=== PATIENT | male | born 1955 | race Caucasian/White ===

== ENCOUNTER 2023-09-10 17:30 | Outpatient (RCR) | payer SELFPAY | END 2023-09-10 23:59 | LOC: NS 17:30 | DX: Z71.3 Dietary counseling and surveillance (principal) ==

== ENCOUNTER 2023-09-15 12:07 | Outpatient (RCR) | payer SELFPAY | END 2023-10-11 23:59 | LOC: NS 12:07 | DX: Z71.3 Dietary counseling and surveillance (principal) ==

== ENCOUNTER 2023-12-15 15:54 | Outpatient (RCR) | payer SELFPAY | END 2024-01-10 23:59 | LOC: NS 15:54 | PROVIDERS: PCP Family Medicine | DX: Z71.3 Dietary counseling and surveillance (principal) ==

== ENCOUNTER 2023-12-19 13:16 | Day surgery (SDC) | payer MEDICARE, SELFPAY ==
[2023-12-19] VITALS (8 sets, daily range): BP systolic 97–118; BP diastolic 48–75; PULSE 57–67; RESP 16–18; TEMP 36.2–36.8; O2SAT 95–97; BMI 25.5
[2023-12-19 14:32] LABS: Bedside Glucose 100 mg/dL (74-106)
== END 2023-12-19 16:02 | disposition home or self-care (01) ==
LOC: EN 13:26 → AC 13:27
PROVIDERS: PCP Nurse Practitioner Family; Referring Provider Nurse Practitioner Family; Visit Provider Internal Medicine Gastroenterology
PROC: 0DJD8ZZ Inspection of Lower Intestinal Tract, Via Natural or Artificial Opening Endoscopic (ICD-10-PCS; CPT 45378; principal; 2023-12-19 14:10)
DX: D12.3 Benign neoplasm of transverse colon (principal); E11.9 Type 2 diabetes mellitus without complications; K63.5 Polyp of colon; K52.9 Noninfective gastroenteritis and colitis, unspecified; K57.30 Diverticulosis of large intestine without perforation or abscess without bleeding; I10 Essential (primary) hypertension; E78.00 Pure hypercholesterolemia, unspecified; G47.30 Sleep apnea, unspecified; Z90.49 Acquired absence of other specified parts of digestive tract; Z79.84 Long term (current) use of oral hypoglycemic drugs; Z79.82 Long term (current) use of aspirin; Z79.899 Other long term (current) drug therapy
CPT/HCPCS: 45380; 82962; 88305; A4216; J2405

== ENCOUNTER → 2024-03-04 | Outpatient (CLI) | payer SELFPAY ==
[2024-03-08 12:07] LABS: Endomysial Antibody IgA Negative (Negative); Immunoglobulin A 253 mg/dL (61-437); t-Transglutaminase IgA <2 U/mL (0-3)
[2024-03-10 09:08] LABS: Beef <0.10 kU/L (Class 0); Chocolate <0.10 kU/L (Class 0); Codfish <0.10 kU/L (Class 0); Corn <0.10 kU/L (Class 0); Egg, Whole <0.10 kU/L (Class 0); Milk (Cow) <0.10 kU/L (Class 0); Mussels <0.10 kU/L (Class 0); Peanut <0.10 kU/L (Class 0); Pork <0.10 kU/L (Class 0); Salmon <0.10 kU/L (Class 0); Shrimp <0.10 kU/L (Class 0); Soybean <0.10 kU/L (Class 0); Tuna <0.10 kU/L (Class 0); Wheat <0.10 kU/L (Class 0)
== END | disposition home or self-care (01) ==
PROVIDERS: PCP Nurse Practitioner Family; Referring Provider Student in an Organized Health Care Education/Training Program; Visit Provider Student in an Organized Health Care Education/Training Program
DX: R19.7 Diarrhea, unspecified (principal)
CPT/HCPCS: 36415; 82784; 83516; 86003; 86005; 86255

== ENCOUNTER → 2024-03-23 | Outpatient (CLI) | payer SELFPAY ==
[2024-03-23 21:47] LABS: Microalbumin,Random Urine 7.3 mg/L (NO RANGE EST.); Microalbumin:Creatinine Ratio 5.7 mg/g CRE (<30 mg/g CRE)
== END | disposition home or self-care (01) ==
PROVIDERS: PCP Nurse Practitioner Family; Referring Provider Internal Medicine Endocrinology, Diabetes & Metabolism; Visit Provider Internal Medicine Endocrinology, Diabetes & Metabolism
DX: E11.9 Type 2 diabetes mellitus without complications (principal); E78.2 Mixed hyperlipidemia; E04.9 Nontoxic goiter, unspecified; E55.9 Vitamin D deficiency, unspecified
CPT/HCPCS: 82043; 82570

== ENCOUNTER → 2024-09-29 | Outpatient (CLI) | payer SELFPAY ==
[2024-09-29 15:53] LABS: AST(SGOT) 26 U/L (<=37); Alanine Aminotransfer ALT/SGPT 24 U/L (<=46); Albumin, Serum 4.2 g/dL (3.4-4.8); Alkaline Phosphatase 74 U/L (40-129); Anion Gap 13 (5-15); BUN 14 mg/dL (4-19); BUN/Creat Ratio 15.7 RATIO (10-20); Calcium,Total 9.2 mg/dL (7.6-11.0); Carbon Dioxide 23.5 mmol/L (21.0-32.0); Chloride 102 mmol/L (98-108); Globulin 2.5 g/dL (2.2-4.2); Glucose 157 mg/dL (70-99); Potassium 4.5 mmol/L (3.3-5.1)
--- OUTSIDE RECORDS SUMMARY | 2024-09-29 19:36 | XMS RPT_ITS | CCD ---
Author Organization [facility] Care Team Providers Care Exterminator Termite Name Role Phone JESUS MANUEL DEL REAL DO Primary Care Physician [phone] RUBEN MIRAMONTES DO Attending Unavailable JESUS MANUEL DEL ERAL DO Primary Care Unavailable Jesus Manuel Del Real Primary Care Unavailable Jesus Manuel Del Real Referring Unavailable Mari Valero Unavailable Referred, Self Attending Unavailable Referred, Self Attending Unavailable Referred, Self Attending Unavailable Casbohm, Zita Primary Care Unavailable Referred, Self Attending Unavailable Referred, Self Attending Unavailable Jesus Manuel Del Real Primary Care Unavailable Casbohm, Zita Primary Care Unavailable Sada Arriola Attending Unavailable Sada Arriola Referring Unavailable Ruben Miramontes Referring Unavailable Casbohm, Zita Primary Care Unavailable Ruben Miramontes Attending Unavailable Casbohm, Zita Primary Care Unavailable Casbohm, Zita Referring Unavailable Friend, Michael Attending Unavailable Casbohm, Zita Primary Care Unavailable Casbohm, Zita Referring Unavailable Friend, Michael Consulting Unavailable Friend, Michael Attending Unavailable Jesus Manuel Del Real Referring Unavailable Casbohm, Zita Primary Care Unavailable Sada Arriola Attending Unavailable Casbohm, Zita Referring Unavailable Casbohm, Zita Primary Care Unavailable Sada Arriola Attending Unavailable Problems Problem Classification Problem Date Documented Da te Episodic/Chronic Diabetes mellitus without complication (1 source) Type 2 diabetes mellitus without complications; Translations: [Type 2 diabetes mellitus without complications] Onset: 04-07-2024 Chronic Other gastrointestinal disorders (1 source) Diarrhea, unspecified; Translations: [Diarrhea, unspecified] Onset: 03-24-2024 Episodic Results Test Name Value Interpretation Reference Range Facility Gastroenterology Visit Repor ton 06-15-2024 Gastroenterology Visit Report [facility] [place] [address] OFFICE VISIT Date of Service: 06/15/24 MR#: [id number] Acct: [id number] Name: CORTEZ GAMBOA Rep #: [id number] : 1955 Provider: MYLES Kirby Age/Sex: 68/M Location: [facility] Status: Signed Intake Vital Signs 12/19/23 13:52 Height 5 ft 9 in Intake Visit Reasons: 3 M FU Chief Complaint: constipation Probation And Parole Officer Required: No Accompanied by: Self Is patient in pain?: No Allergies No Known Allergies Allergy (Verified 06/15/24 10:25) Medications ???Medication ???Instructions ???Recorded ???Confirmed ???Type aspirin 81 mg tablet,delayed 81 mg PO QDAY 11/17/23 06/15/24 Hi story release (Adult Aspirin Regimen) empagliflozin 25 mg tablet 25 mg PO QDAY 11/17/23 06/15/24 Hi story (Jardiance) glimepiride 1 mg tablet 1 mg PO QAM 11/17/23 06/15/24 Hist ory dbgjt-6h-tef-epa-fish oil 120 1 cap PO DAILY 11/17/23 06/15/24 H istory mg-180 mg-60 mg-1,200 mg capsule, (Fish Oil) rosuvastatin 10 mg tablet 10 mg PO QHS 11/17/23 06/15/24 His tory semaglutide 0.25 mg or 0.5 mg (2 0.25 mg subcut MO 11/17/23 5 History mg/1.5 mL) subcutaneous pen injector (Ozempic) albuterol sulfate 0.63 mg/3 mL 0.63 mg inhalation 4X/DAY PRN PRN 12/17/23 06/15/24 History solution for nebulization dyspnea colestipol 1 gram tablet 1 g PO BID #90 tabs 03/04/2406/15 Rx metformin 1,000 mg tablet 500 mg PO BID 06/15/24 06/15/24 Hi story Have you fallen in the past year?: No Nurse's Note: Feels he is doing somewhat better [facility] Medical History (Updated 03/04/24 @ 10:30 by MYLES Kirby) Loss of hearing Wears glasses Diabetes High cholesterol Restless legs Back pain Dietary restriction Diarrhea Scar tissue Shortness of breath on exertion Non-smoker CPAP (continuous positive airway pressure) dependence History of stress test Hypertension Surgical History Hx of appendectomy Social History Smoking Status: Never smoker HPI HPI Chief Complaint: constipation Details: CORTEZ GAMBOA, is a 68 M who presents to the office today for f/u. BGI established in November 2023 with diarrhea several times per month. Recent increase in emalide dose which caused abd cramping and worsening diarrhea. *start cholestyramine Colonoscopy 12.19.23;- Diverticulosis in the recto-sigmoid colon and in the sigmoid colon. - Two 5 mm polyps at the hepatic flexure and in the cecum, removed with a jumbo cold forceps. Resected and retrieved. Last OV 1.23.25 Pt doing better with cholestyramine daily. Loose stools about every two weeks which has improved. He is on Metformin 1000 mg OV 5.6.25 Pt doing well today. He is no longer having loose stools and is not taking the cholestyramine. He has not had a loose stool since late March. He did go down on his Metformin and is now taking 500mg. He feels he is now having some constipation with a bm every 1-3 days. He takes laxatives PRN. ROS Const Constitutional: Positive for fatigue; No fever(s) or weight change ENT ENT: No difficulty swallowing Cardio Cardiology: Positive for leg pain with exertion Gastro GI: Positive for constipation; No abdominal pain, belching, bloating, change in bowel habits, change in stool character, coffee ground emesis, cramping, diarrhea, heartburn, difficulty swallowing, feeling full early, excessive flatus, incontinent of stools, Vomiting blood/hematemesis, Blood in stool, loose stools, Black,tarry stools, nausea/dyspepsia, pain with swallowing, vomiting or other Musc Musculoskeletal: Positive for back pain and leg pain with exertion; No joint pain Skin Skin: No yellowing of the eye or itchy eyes Psych Psychiatric: No anxiety and No depression Endo Endocrine: Positive for fatigue; No weight change Aller/Imm Allergy/Immunologic: No itchy eyes Stephen/Lymp Hematologic/Lymphatic: No easy bleeding or easy bruising Exam Const General: cooperative and comfortable Nutritional Appearance: average body habitus and well nourished HENMT Head: normal to inspection Ears: hearing grossly normal bilaterally Nose: external nose normal Face and sinus: normal facial exam Eyes General: appearance normal, both eyes and all related structures Neck Neck: normal visual inspection Chest Chest palpation inspection: normal inspection of the chest Resp Effort Inspection: normal respiratory effort Cardio Palpation: normal PMI GI Inspection: normal to inspection Palpation: no hepatosplenomegaly Skin General: no rashes or lesions noted Neuro General: patient alert Extrem General: normal to (more content not included)... Normal [facility] Microalb:Creat Ratio,Random URon 03-23-2024 Creatinine [Mass/Vol] 128.00 mg/dL Normal NO RANGE EST . [facility] Comment on above: Performed By: #### L 502.0250 #### [facility] [address] [place], [address] MALB:CRE 5.7 mg/g CRE Normal <30 mg/g CRE [facility] Comment on above: Performed By: #### L 502.0250 #### [facility] [address] [facility] [address] MICROALBUMIN,UR 7.3 mg/L Normal NO RANGE EST. [facility] Comment on above: Performed By: #### L 502.0250 #### [facility] [address] [facility] [address] L5500.0550on 03-10-2024 BEEF <0.10 Normal Class 0 [facility] Comment on above: Performed By: #### L 3410.2400, L5500.0550 #### [facility] [address] [facility] [address] CHOCOLATE <0.10 Normal Class 0 [facility] Comment on above: Performed By: #### L 3410.2400, L5500.0550 #### [facility] [address] [facility] [address] CODFISH <0.10 Normal Class 0 [facility] Comment on above: Performed By: #### L 3410.2400, L5500.0550 #### [facility] [address] [place], [place], [address] COMMENT Comment Normal . [facility] Comment on above: Result Comment: Toshia kaplan of Specific IgE Class Description of Class ----- < 0.10 0 Negative 0.10 - 0.31 0/I Equivocal/Low 0.32 - 0.55 I Low 0.56 - 1.40 II Moderate 1.41 - 3.90 III High 3.91 - 19.00 IV Very High 19.01 - 100.00 V Very High >100.00 Very High Performed By: #### L 3410.2400, L5500.0550 #### [facility] [address] [place], [address] CORN <0.10 Normal Class 0 [facility] Comment on above: Performed By: #### L 3410.2400, L5500.0550 #### [facility] [address] [place], [place], [id number] EGG, WHOLE <0.10 Normal Class 0 [facility] Comment on above: Result Comment: Perf ormed at: - [facility] [id number] [place] [employer] Supervisor: Joan Perez MD, Phone: [phone] Performed By: #### L 3410.2400, L5500.0550 #### [facility] [address] [place], [place], [address] MILK (COW) <0.10 Normal Class 0 [facility] Comment on above: Performed By: #### L 3410.2400, L5500.0550 #### [facility] [address] [place], [address] MUSSELS <0.10 Normal Class 0 [facility] Comment on above: Performed By: #### L 3410.2400, L5500.0550 #### [facility] [address] [place], [address] PEANUT <0.10 Normal Class 0 [facility] Comment on above: Performed By: #### L 3410.2400, L5500.0550 #### [facility] [address] [place], [address] PORK <0.10 Normal Class 0 [facility] Comment on above: Performed By: #### L 3410.2400, L5500.0550 #### [facility] [address] [place], [address] SALMON <0.10 Normal Class 0 [facility] Comment on above: Performed By: #### L 3410.2400, L5500.0550 #### [facility] [address] [place], [address] SHRIMP <0.10 Normal Class 0 [facility] Comment on above: Performed By: #### L 3410.2400, L5500.0550 #### [facility] [address] [place], [address] SOYBEAN <0.10 Normal Class 0 [facility] Comment on above: Performed By: #### L 3410.2400, L5500.0550 #### [facility] [address] [place], [address] TUNA <0.10 Normal Class 0 [facility] Comment on above: Performed By: #### L 3410.2400, L5500.0550 #### [facility] [address] [place], [address] WHEAT <0.10 Normal Class 0 [facility] Comment on above: Performed By: #### L 3410.2400, L5500.0550 #### [facility] [address] [place], [address] Celiac Disease Profileon ENDOMYSIAL IGA Negative Normal Negative [facility] Comment on above: Performed By: #### L 3410.2400, L5500.0550 #### [facility] [address] [place], [address] IMMUNOGLOB A QN 253 mg/dL Normal 61-437 [facility] Comment on above: Result Comment: Perf ormed at: [facility] [id number] [place] Supervisor: Naresh Hall PhD, Phone: [phone] Performed By: #### L 3410.2400, L5500.0550 #### [facility] [address] [place], [place], [address] tTG IGA <2 Normal 0-3 [facility] Comment on above: Result Comment: Nega tive 0 - 3 Weak Positive 4 - 10 Positive >10 Tissue Transglutaminase (tTG) has been identified as the endomysial antigen. Studies have demonstr- ated that endomysial IgA antibodies have over 99% specificity for gluten sensitive enteropathy. Performed By: #### L 3410.2400, L5500.0550 #### [facility] [address] [place], [address] Gastroenterology Visit Repor ton 03-04-2024 Gastroenterology Visit Report [facility] [address] [place] [address] OFFICE VISIT Date of Service: 03/04/24 MR#: [id number] Acct: [id number] Name: CORTEZ GAMBOA Rep #: [id number] : 1955 Provider: MYLES Kirby Age/Sex: 68/M Location: [facility] Status: Signed Intake Vital Signs 12/19/23 13:52 Height 5 ft 9 in Intake Visit Reasons: 3 M FU Chief Complaint: Diarrha and fatigue Allergies No Known Allergies Allergy (Verified 12/19/23 13:47) Medications ???Medication ???Instructions ???Recorded ???Confirmed ???Type aspirin 81 mg tablet,delayed 81 mg PO QDAY 11/17/23 12/17/23 History release (Adult Aspirin Regimen) colestipol 5 gram oral granules 5 g PO QHS #500 grams 11/17/23 12/19/23 Rx empagliflozin 25 mg tablet 25 mg PO QDAY 11/17/23 12/19/23 History (Jardiance) glimepiride 1 mg tablet 1 mg PO QAM 11/17/23 12/19/23 History metformin 1,000 mg tablet 1,000 mg PO BID 11/17/23 12/19/23 History jilqd-6l-flj-epa-fish oil 120 1 cap PO DAILY 11/17/23 12/17/23 History mg-180 mg-60 mg-1,200 mg capsule, DR (Fish Oil) rosuvastatin 10 mg tablet 10 mg PO QHS 11/17/23 12/19/23 History semaglutide 0.25 mg or 0.5 mg (2 0.25 mg subcut MO 11/17/23 12/17/23 History mg/1.5 mL) subcutaneous pen injector (Ozempic) albuterol sulfate 0.63 mg/3 mL 0.63 mg inhalation 4X/DAY PRN PRN 12/17/23 12/19/23 History solution for nebulization dyspnea budesonide 3 mg 3 mg PO BID #60 ea 12/22/23 Rx capsule,delayed,extend ed release colestipol 1 gram tablet 1 g PO BID #90 tabs 03/04/24 03/04/24 Rx Have you fallen in the past year?: No Nurse's Note: OV 03.04.24 Pt here for f/u. Pt reports diarrhea, and gas. Denies blood in stools, and n/v. Takes colestipol and Metamucil. [facility] Medical History (Updated 03/04/24 @ 10:30 by MYLES Kirby) Loss of hearing Wears glasses Diabetes High cholesterol Restless legs Back pain Dietary restriction Diarrhea Scar tissue Shortness of breath on exertion Non-smoker CPAP (continuous positive airway pressure) dependence History of stress test Hypertension Surgical History Hx of appendectomy Social History Smoking Status: Never smoker HPI HPI Chief Complaint: Diarrha and fatigue Details: CORTEZ GAMBOA, is a 68 M who presents to the office today for f/u. BGI established with complaints of diarrhea several times per month. Pt is on semaglutide with recent increase in dosing. Caused abd camping and worse diarrhea so decreased. *start colestipol Colonoscopy 12.19.23;- Diverticulosis in the recto-sigmoid colon and in the sigmoid colon. - Two 5 mm polyps at the hepatic flexure and in the cecum, removed with a jumbo cold forceps. Resected and retrieved. OV 03.04.24 Pt has been doing better with cholestyramines daily. He is having loose stools about every 2 weeks. This is improved since his last visit. He is on 1000 mg of metformin twice a day and ozempic. He tells me he has had issues with diarrhea for about 10 years. He is unsure if metformin is contributing to this. ROS Const Constitutional: No fatigue, fever(s) or weight change ENT ENT: No difficulty swallowing Gastro GI: Positive for bloating, diarrhea and excessive flatus; No abdominal pain, belching, change in bowel habits, change in stool character, coffee ground emesis, constipation, cramping, heartburn, difficulty swallowing, feeling full early, incontinent of stools, Vomiting blood/hematemesis, Blood in stool, loose stools, Black,tarry stools, nausea/dyspepsia, pain with swallowing, vomiting or other Musc Musculoskeletal: Positive for stiffness; No joint pain Skin Skin: No yellowing of the eye or itchy eyes Psych Psychiatric: No anxiety and No depression Endo Endocrine: No fatigue or weight change Aller/Imm Allergy/Immunologic: No itchy eyes Stephen/Lymp Hematologic/Lymphatic: No easy bleeding or easy bruising Exam Const General: cooperative and comfortable Nutritional Appearance: average body habitus and well nourished HENMT Head: normal to inspection Ears: hearing grossly normal bilaterally Nose: external nose normal Throat: posterior oropharynx normal Eyes General: appearance normal, both eyes and all related structures Neck Neck: normal visual inspection Chest Chest palpation inspection: normal inspection of the chest and normal palpation of entire chest wall Resp Effort Inspection: normal respiratory effort Auscultation: Bilateral: Clear to Auscultation Cardio Palpation: normal PMI Rate: regular rate Rhythm: regular rhythm GI Inspection: normal to inspection Auscultation: normal bowel sounds Percussion: vasiliy (more content not included)... Normal [facility] Bedside Glucoseon 12-19-2023 FINGERSTICK GLU 100 mg/dL Normal 74-106 [facility] Comment on above: Result Comment: LANRE DOWNS OF PATIENT CARE PER NURSING PROTOCOL Performed By: #### L 501.080 #### [facility] [address] [facility] [place], [address] Colonoscopy Reporton 024 Colonoscopy Report [facility] Medical Records Department [address] [facility] [place] [address] Colonoscopy Report MR#: [id number] Acct: [id number] Name: CORTEZ GAMBOA Rep #: [id number] : 1955 68 From: Michael Figueroa DO PCP: CIERA Ang Status:REG NJC Patient Name: Cortez Gamboa Procedure Date: 12/19/2023 2:30 PM Date of : 1955 Age: 68 Procedure: Colonoscopy Indications: Chronic diarrhea Providers: Michael Figueroa DO Referring MD: Jesus Manuel Del Real Medicines: Monitored Anesthesia Care Patient Profile: This is a 68 year old male. Refer to note in patient chart for documentation of history and physical. Last Colonoscopy: date unknown. Unable to locate last colonoscopy report. Complications: No immediate complications. Procedure: Pre-Anesthesia Assessment: - Prior to the procedure, a History and Physical was performed, and patient medications and allergies were reviewed. The patient is competent. The risks and benefits of the procedure and the sedation options and risks were discussed with the patient. All questions were answered and informed consent was obtained. Patient identification and proposed procedure were verified by the physician in the pre-procedure area. Mental Status Examination: alert and oriented. Airway Examination: normal oropharyngeal airway and neck mobility. Respiratory Examination: clear to auscultation. CV Examination: normal. Prophylactic Antibiotics: The patient does not require prophylactic antibiotics. Prior Anticoagulants: The patient has taken no anticoagulant or antiplatelet agents except for NSAID medication. ASA Grade Assessment: II - A patient with mild systemic disease. After reviewing the risks and benefits, the patient was deemed in satisfactory condition to undergo the procedure. The anesthesia plan was to use monitored anesthesia care (MAC). Immediately prior to administration of medications, the patient was re-assessed for adequacy to receive sedatives. The heart rate, respiratory rate, oxygen saturations, blood pressure, adequacy of pulmonary ventilation, and response to care were monitored throughout the procedure. The physical status of the patient was re-assessed after the procedure. After I obtained informed consent, the scope was passed under direct vision. Throughout the procedure, the patient's blood pressure, pulse, and oxygen saturations were monitored continuously. The pediatric colonoscope was introduced through the anus and advanced to the terminal ileum. The colonoscopy was performed without difficulty. The patient tolerated the procedure well. The quality of the bowel preparation was adequate. The terminal ileum, ileocecal valve, appendiceal orifice, and rectum were photographed. Scope In: 2:51:41 PM Scope Withdrawal Time 0 hours 9 minutes 18 seconds Scope Out: 3:04:55 PM Total Procedure Duration Time 0 hours 13 minutes 14 seconds Findings: The perianal and digital rectal examinations were normal. Multiple small-mouthed diverticula were found in the recto-sigmoid colon and sigmoid colon. Two sessile polyps were found in the hepatic flexure and cecum. The polyps were 5 mm in size. These polyps were removed with a jumbo cold forceps. Resection and retrieval were complete. Verification of patient identification for the specimen was done using the patient's name. Estimated blood loss was minimal. Impression: - Diverticulosis in the recto-sigmoid colon and in the sigmoid colon. - Two 5 mm polyps at the hepatic flexure and in the cecum, removed with a jumbo cold forceps. Resected and retrieved. Recommendation: - Repeat colonoscopy in 3 years for surveillance. - Continue present medications. Procedure Code(s): --- Professional --- 38258, Colonoscopy, flexible; with biopsy, single or multiple CPT copyright 2021 [employer]. All rights reserved. The codes documented in this report are preliminary and upon skiver machine review may be revised to meet current compliance requirements. Michael Figueroa DO 12/19/2023 3:13:35 PM This report has been signed electronically. Number of Addenda: 0 Note Initiated On: 12/19/2023 2:30 PM 12/19/23 1513 Date Michael Butler Signature: Date (if indicated) CC: DOCK MANAGERJesús Isaac; Dr. Jesus Manuel Del Real DO; Michael Figueroa DO Date Dictated: 12/19/23 1430 Date Transcribed: Vegetable Worker: ADONIS Colvin [facility] MR/POSTOP.[facility] Medical Records Department [address] [place] [address] Anesthesia Postop Eval I 12/19/231514 MR#: [id number] Acct: [id number] Name: CORTEZ GAMBOA ALETHEA Rep #: [id number] : 1955 68 From: Clayton Acuna PCP: CIERA Ang Status:REG SDC Y Race: C Location: [place] [address] Anesthesia: Postop Eval I Current Vital Signs Temperature: 97.2 F Pulse Rate: 62 Blood Pressure: 97/48 Respiratory Rate: 16 Pulse Ox: 97 Oxygen Delivery Method: Room Air Assessment Airway patent: Yes Spontaneous unlabored respirations: Yes Mental status: Asleep nausea: No Vomiting: No Anesthesia Complication: No Fluid Hydration Crystalloid volume administer (ml): 50 Total IV fluid infused: 50 Progress Note Anesthesia document: Postop Eval 1 completed: Yes 12/19/231516 Date Clayton Acuna Cosigner Signature: Date CC: Signed Normal [facility] MR/[id number] 12-19-2023 MR/POSTOPAN2 [facility] Medical Records Department [address] [place] [address] Anesthesia Postop Eval II 12/19/231712 MR#: [id number] Acct: [id number] Name: CORTEZ GAMBOA Rep #: [id number] : 1955 68 From: Trevon Mckee MD PCP: CIERA Ang Status:[facility] Y Race: C Location: EN Anesthesia Postop Eval I Sum Postop Eval Completion status Anesthesia document: Postop Eval 1 completed: Yes Anesthesia Postop Eval I Summary Anesthesia Postop Eval I Summary: Anesthesia Postop Eval I: Assessment Summary Airway patent Yes 12/19/23 15:17 [email or web address] Spontaneous unlabored Yes 12/19/23 15:17 [email or web address] respirations Mental status Asleep 12/19/23 15:17 [email or web address] nausea No 12/19/23 15:17 [email or web address] Vomiting No 12/19/23 15:17 [email or web address] Anesthesia Postop Eval I: Fluid Summary Crystalloid volume administer 50 12/19/23 15:17 [email or web address] (ml) Colloids volume administered ( ml) Blood Product volume administered (ml) Total IV fluid infused 50 12/19/23 15:17 [email or web address] Anesthesia Postop Eval I: Summary Notes Anesthesia Complication No 12/19/23 15:17 [email or web address] Anesthesia Complication Comment: Post-operative progress note Anesthesia: Postop Eval II Evaluation Mental status: Awake and Calm Pain Level: 0 nausea: No Vomiting: No Complications Anesthesia Complication: No 12/19/231712 Date Trevon Mckee MD Cosigner Signature: Date CC: Signed Normal [facility] Surgery Specimen Level Katerin 12-19-2023 Surgery Specimen Level IV ---- Patient Age/Sex Location Account Attending Physician ---- CORTEZ GAMBOA 68/M EN [id number] Michael Figueroa DO ---- Specimen: [id number] Received: 12/19/23 Status: JOHN Mixon Num: [id number] Spec Type: COLON BX Subm Dr: Michael Figueroa, DO HEADER OPERATION: Colonoscopy with biopsy PRE-OP DIAGNOSIS: Diarrhea TISSUE SUBMITTED: A- Cecal polyp biopsy, B- Terminal ileum biopsy, C- Hepatic flexure polyp biopsy, D- Random colon biopsy ---- MICROSCOPIC DIAGNOSIS A. Cecal polyp, biopsy: Fragments of hyperplastic polyp. B. Terminal ileum, biopsy: No pathologic change. C. Colonic polyp at hepatic flexure, biopsy: Tubular adenoma. D. Colon, random biopsy: No pathologic change. AM. 12/23/2023 MICROSCOPIC DESCRIPTION Slides are reviewed. GROSS DESCRIPTION A. Received in fixative is one container labeled with the patient's name and designated Cecal polyp biopsy. The specimen consists of multiple irregular fragments of light nuno soft tissue that in aggregate measure 0.6 x 0.3 x 0.1 cm. The specimen is totally submitted in one cassette. B. Received in fixative is one container labeled with the patient's name and designated Terminal ileum biopsy. The specimen consists of multiple irregular fragments of light nuno soft tissue that in aggregate measure 0.8 x 0.2 x 0.1 cm. The specimen is totally submitted in one cassette. C. Received in fixative is one container labeled with the patient's name and designated Hepatic flexure polyp biopsy. The specimen consists of one irregular fragment of light nuno soft tissue that measures 0.3 x 0.2 x 0.1 cm. The specimen is totally submitted in one cassette. D. Received in fixative is one container labeled with the patient's name and designated Random colon biopsy. The specimen consists of multiple irregular fragments of light nuno soft tissue that in aggregate measure 1.5 x 0.6 x 0.1 cm. The specimen is totally submitted in one cassette. SJ. 12/22/2023 TC:5 CPT:06088x0 ---- Patient Age/Sex Location Account Attending Physician ---- CORTEZ GAMBOA 68/M EN [id number] Michael Figueroa DO ---- Signed (signature on file) Dr. Rey Renee DO 12/23/23 1325 ---- Normal [facility] Comment on above: Performed By: #### P SUIV #### [facility] [address] [place], [place], [id number] Gastroenterology Visit Repor ton 11-17-2023 Gastroenterology Visit Report [facility]astroenterology [address] [place] [address] OFFICE VISIT Date of Service: 11/17/23 MR#: [id number] Acct: [id number] Name: CORTEZ GAMBOA Rep #: [id number] : 1955 Provider: CIERA mendez Age/Sex: 68/M Location: [facility] Status: Signed Intake Intake Visit Reasons: Diarrhea Chief Complaint: Diarrha and fatigue Probation And Parole Officer Required: No Medications ???Medication ???Instructions ???Recorded ???Confirmed ???Type aspirin 81 mg tablet,delayed 81 mg PO QDAY 11/17/23 11/17/23 History release (Adult Aspirin Regimen) colestipol 5 gram oral granules 5 g PO QHS #500 grams 11/17/23 11/17/23 Rx empagliflozin 25 mg tablet 25 mg PO QDAY 11/17/23 11/17/23 History (Jardiance) glimepiride 1 mg tablet 1 mg PO QAM 11/17/23 11/17/23 History metformin 1,000 mg tablet 1,000 mg PO BID 11/17/23 11/17/23 History zicoo-0h-fst-epa-fish oil 120 cap PO 11/17/23 11/17/23 History mg-180 mg-60 mg-1,200 mg capsule, DR (Fish Oil) rosuvastatin 10 mg tablet 10 mg PO QDAY 11/17/23 11/17/23 History semaglutide 0.25 mg or 0.5 mg (2 0.25 mg subcut QWEEK 11/17/23 11/17/23 History mg/1.5 mL) subcutaneous pen injector (Ozempic) telmisartan 40 mg tablet 40 mg PO QDAY 11/17/23 11/17/23 History Have you fallen in the past year?: No Nurse's Note: OV 11.17.23 Pt here for diarrhea, fatigue, and abdominal discomfort. Pt reports diarrhea monthly. Pt noticed loose stools started when he started metformin. Denies blood in stools. Pt has never had a colonoscopy or EGD. HPI HPI Chief Complaint: Diarrha and fatigue Details: CORTEZ GAMBOA, is a 68 M who presents to the office today for establishment with [facility] for complaints of diarrhea several times a month. He reports significant urgency with diarrhea in the morning. He denies pain, bloating, cramping, tenesmus, hematochezia, and melena. He denies difficulty chewing and swallowing, heartburn, reflux, nausea, vomiting. He denies exposure to ill persons and change in diet. He reports changing dosing on diabetes medicines in the last 3 months. 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 He reports that he still has his gallbladder but his appendix is out. ROS Const Constitutional: Positive for fatigue and decreased energy; No chills, fever(s) or weight change Eyes Eyes: No change in vision ENT ENT: No abnormal hearing or difficulty swallowing Resp Respiratory: No cough Cardio Cardiology: No chest pain at rest, chest pain with exertion or leg pain with exertion Gastro GI: Positive for diarrhea; No abdominal pain, belching, bloating, change in bowel habits, change in stool character, coffee ground emesis, constipation, cramping, heartburn, difficulty swallowing, feeling full early, excessive flatus, incontinent of stools, Vomiting blood/hematemesis, Blood in stool, loose stools, Black,tarry stools, nausea/dyspepsia, pain with swallowing, vomiting or other Genitourinary Male: No difficulty urinating Musc Musculoskeletal: No joint pain or leg pain with exertion Skin Skin: No yellowing of the eye or itchy eyes Neuro Neurology: No abnormal hearing Psych Psychiatric: No anxiety and No depression Endo Endocrine: Positive for cold intolerance and fatigue; No heat intolerance or weight change Aller/Imm Allergy/Immunologic: No food intolerance or itchy eyes Stephen/Lymp Hematologic/Lymphatic: No easy bleeding or easy bruising Exam Const General: cooperative, healthy appearing and comfortable [facility] Head: normal to inspection Ears: hearing grossly normal bilaterally Nose: external nose normal Face and sinus: normal facial exam and face symmetric Eyes General: appearance normal, both eyes and all related structures Sclera: sclerae normal Neck Neck: normal visual inspection and full ROM Chest Chest palpation inspection: normal inspection of the chest Resp Effort Inspection: normal respiratory effort, able to speak in complete sentences and symmetric chest movement GI Inspection: normal to inspection Auscultation: normal bowel sounds Palpation: soft and no hepatosplenomegaly Skin Wounds: wounds noted laceration right lateral lower leg Neuro General: patient alert, patient awake and patient oriented x3 Cognition: normal cognition Speech: speech normal Gait: normal gait Extrem General: full ROM Psych Appearance: well kempt Mental Status: mental status grossly normal Mood: congruent mood Affect: normal affect Speech and Movement: speech and movement normal Attitude: cooperative Thought Process: normal Assessment and Plan Assessment and Plan (1) Diarrhea: Qualifiers: Diarrhea type: unspecified type Qualifie (more content not included)... Normal [facility] NM MYOCARDIAL SPECT STRESS/R ESTon 11-13-2022 NM MYOCARDIAL SPECT STRESS/REST ORIGINAL EXAMINATION: CARDIAC SPECT11/13/2022 12:00 pm TECHNIQUE: Lexiscan dose: 0.4 mg IV Radiopharmaceutical (rest and stress doses): Tc-99m Sestamibi IV 7.9 and 27 mCi SPECT acquisition and processing: Images reconstructed into short, vertical long, and horizontal long axis planes. Wall motion evaluation and quantitative LVEF assessment. Low-dose CT attenuation correction. COMPARISON: None HISTORY: Reason for Exam: R94.31 Abnormal electrocardiogram R07.89 Other chest pain FINDINGS: Decreased perfusion involving the inferior wall on non-attenuation corrected post stress images resolves on attenuation corrected post-stress images, likely represents soft tissue attenuation. There is no stress-induced reversible perfusion abnormality. No fixed perfusion defect is seen to suggest infarction. The left ventricular end-diastolic volume is 69 mL. Gated imaging demonstrates no regional wall motion abnormality. Estimated left ventricular ejection fraction is 69 %. TID ratio is normal at 1.14. Low-dose attenuation correction CT demonstrates right coronary artery origin atherosclerotic calcifications. The heart is normal in size. No pericardial or pleural effusion is seen. There is no focal consolidation. Hepatic steatosis is seen. IMPRESSION: 1. No stress-induced reversible perfusion abnormality is seen. 2. Cardiac systolic function is normal with estimated ejection fraction of 69 %. Interpreted by: Artem Gallardo MD Preliminary Report By: Artem Gallardo MD Electronically signed By Artem Gallardo MD Dictated Date: 11/13/2022 12:54:37 PM Prelim Date: 11/13/2022 1:05:02 PM Sign Date: 11/13/2022 1:05:02 PM Ordering Provider: RUBEN MIRAMONTES [facility] ([place]) Encounters Encounter Date Encounter Type Care Provider Facility Start: 06-15-2024 End: 06-15-2024 ambulatory Zita Isaac Facility:[facility] Start: 03-23-2024 End: 03-23-2024 ambulatory Ruben Miramontes Facility:[facility] Start: 03-04-2024 End: 03-04-2024 ambulatory Jesus Manuel Del Real Facility:[facility] Start: 03-04-2024 End: 03-04-2024 ambulatory Zita Casbo Facility:[facility] Start: 01-21-2024 ambulatory Zita Casbo Facility: [facility] Start: 12-19-2023 ambulatory Zita Casbo Facility: [facility] Start: 12-19-2023 End: 12-19-2023 ambulatory Zita Casbohm Facility:[facility] Start: 12-15-2023 End: 01-10-2024 ambulatory Self Referred Facility:[facility] Start: 11-17-2023 End: 11-17-2023 ambulatory Jesus Manuel Llanosler Facility:[facility] Start: 10-22-2023 ambulatory Self Referred Facility: [facility] Start: 09-15-2023 End: 10-11-2023 ambulatory Self Referred Facility:[facility] Start: 09-10-2023 End: 09-10-2023 ambulatory Self Referred Facility:[facility] Start: 11-13-2022 End: 11-14-2022 ambulatory RUBEN MIRAMONTES DO Facility:[facility] Start: 11-13-2022 End: 11-13-2022 Patient encounter procedure RUBEN MIRAMONTES DO [facility] Payers Date Payer Category Payer Self-pay [id number] 2023 Self-pay 2023 Self-pay 2022 Medicare [id number] 1955 Unknown [id number] 2.16.8 [id number] Unknown [id number] 2.16.8 [id number] Unknown [id number] 2.16.8 [id number] Unknown [id number] 2.16.8 [id number] Unknown [id number] 2.16.8 [id number] Unknown [id number] 2.16.8 [id number] Unknown [id number] 2.16.8 [id number] Unknown [id number] 2.16.8 [id number] Unknown [id number] 2.16.8 [id number] Unknown [id number] 2.16.8 [id number] Unknown [id number] 2.16.8 [id number] Unknown [id number] 2.16.8 [id number] Unknown [id number] 2.16.8 [id number] Clinical Note 12-19-2023 Note Date & Type Note Facility 12-19-2023 Note [facility] Medical Records Department [address] [place] [address] History Physical Exam 12/19/23 1424 MR#: [id number] Acct: [id number] Name: CORTEZ GAMBOA Rep #: [id number] : 1955 68 From: Michael Friend PCP: CIERA Ang Status:[facility] Location: [place] [address] History and Physical Date of Admission: 12/19/23 [facility] Complaint: Diarrha and fatigue Details: CORTEZ GAMBOA, is a 68 M who presents to the office today for establishment with [facility] for complaints of diarrhea several times a month. He reports significant urgency with diarrhea in the morning. He denies pain, bloating, cramping, tenesmus, hematochezia, and melena. He denies difficulty chewing and swallowing, heartburn, reflux, nausea, vomiting. He denies exposure to ill persons and change in diet. He reports changing dosing on diabetes medicines in the last 3 months. 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 He reports that he still has his gallbladder but his appendix is out. ROS Const Constitutional: Positive for fatigue and decreased energy; No chills, fever(s) or weight change Eyes Eyes: No change in vision ENT ENT: No abnormal hearing or difficulty swallowing Resp Respiratory: No cough Cardio Cardiology: No chest pain at rest, chest pain with exertion or leg pain with exertion Gastro GI: Positive for diarrhea; No abdominal pain, belching, bloating, change in bowel habits, change in stool character, coffee ground emesis, constipation, cramping, heartburn, difficulty swallowing, feeling full early, excessive flatus, incontinent of stools, Vomiting blood/hematemesis, Blood in stool, loose stools, Black,tarry stools, nausea/dyspepsia, pain with swallowing, vomiting or other Genitourinary Male: No difficulty urinating Musc Musculoskeletal: No joint pain or leg pain with exertion Skin Skin: No yellowing of the eye or itchy eyes Neuro Neurology: No abnormal hearing Psych Psychiatric: No anxiety and No depression Endo Endocrine: Positive for cold intolerance and fatigue; No heat intolerance or weight change Aller/Imm Allergy/Immunologic: No food intolerance or itchy eyes Stephen/Lymp Hematologic/Lymphatic: No easy bleeding or easy bruising Exam Const General: cooperative, healthy appearing and comfortable [facility] Head: normal to inspection Ears: hearing grossly normal bilaterally Nose: external nose normal Face and sinus: normal facial exam and face symmetric Eyes General: appearance normal, both eyes and all related structures Sclera: sclerae normal Neck Neck: normal visual inspection and full ROM Chest Chest palpation inspection: normal inspection of the chest Resp Effort Inspection: normal respiratory effort, able to speak in complete sentences and symmetric chest movement GI Inspection: normal to inspection Auscultation: normal bowel sounds Palpation: soft and no hepatosplenomegaly Skin Wounds: wounds noted laceration right lateral lower leg Neuro General: patient alert, patient awake and patient oriented x3 Cognition: normal cognition Speech: speech normal Gait: normal gait Extrem General: full ROM Psych Appearance: well kempt Mental Status: mental status grossly normal Mood: congruent mood Affect: normal affect Speech and Movement: speech and movement normal Attitude: cooperative Thought Process: normal Assessment and Plan Assessment and Plan (1) Diarrhea: Qualifiers: Diarrhea type: unspecified type Qualified Code(s): R19.7 - Diarrhea, unspecified Plan: CORTEZ ERVIN, is a 68 M who presents to the office today for establishment with [facility] for complaints of diarrhea several times a month. Differential diagnoses include: food allergies, IBS, IBD, EPI, cholangitis, cholecystitis less likely. Pt reported is self pay for labs. We will research [employer] for previous values prior to ordering. Discussed plan with him. * colonoscopy due to no history of ever having one plus symptoms * colestipol 5gr PO QHS for diarrhea * call results * office follow-up in 3months, or 6 months if he travels out of country to see his son Medications: New colestipol 5 grams PO QHS 500 grams 2RF I have examined the patient and the H P has been reviewed. There are no clinical changes since date of exam. 12/19/23 1424 Cosigner Signature (if applicable): CC: CIERA Isaac; Michael Friend, Signed [facility] Clinical Note 11-13-2022 Note Date & Type Note Facility 11-13-2022 Note ORIGINAL EXAMINATION: CARDIAC SPECT11/13/2022 12:00 pm TECHNIQUE: Lexiscan dose: 0.4 mg IV Radiopharmaceutical (rest and stress doses): Tc-99m Sestamibi IV 7.9 and 27 mCi SPECT acquisition and processing: Images reconstructed into short, vertical long, and horizontal long axis planes. Wall motion evaluation and quantitative LVEF assessment. Low-dose CT attenuation correction. COMPARISON: None HISTORY: Reason for Exam: R94.31 Abnormal electrocardiogram R07.89 Other chest pain FINDINGS: Decreased perfusion involving the inferior wall on non-attenuation corrected post stress images resolves on attenuation corrected post-stress images, likely represents soft tissue attenuation. There is no stress-induced reversible perfusion abnormality. No fixed perfusion defect is seen to suggest infarction. The left ventricular end-diastolic volume is 69 mL. Gated imaging demonstrates no regional wall motion abnormality. Estimated left ventricular ejection fraction is 69 %. TID ratio is normal at 1.14. Low-dose attenuation correction CT demonstrates right coronary artery origin atherosclerotic calcifications. The heart is normal in size. No pericardial or pleural effusion is seen. There is no focal consolidation. Hepatic steatosis is seen. IMPRESSION: 1. No stress-induced reversible perfusion abnormality is seen. 2. Cardiac systolic function is normal with estimated ejection fraction of 69 %. Interpreted by: Artem Gallardo MD Preliminary Report By: Artem Gallardo MD Electronically signed By Artem Gallardo MD Dictated Date: 11/13/2022 12:54:37 PM Prelim Date: 11/13/2022 1:05:02 PM Sign Date: 11/13/2022 1:05:02 PM Ordering Provider: RUBEN MIRAMONTES [facility] Clinical Note 11-13-2022 Note Date & Type Note Facility 11-13-2022 Note Date of Service 11/13/22 Procedure: Lexiscan (regadenoson) chemical stress test Patient underwent a pharmacologic stress test using regadenoson. Total regadenoson dose of 0.4 mg was given as per protocol. The patient had a baseline heart rate of 85 bpm, which peaked at 89 bpm. The patient had a baseline blood pressure of 172/87 mmHg and it changed to 143/64 mmHg after the regadenoson administration. The patient did experience SOB/flushing, which all resolved at the end of the test. The patient's baseline EKG showed normal sinus rhythm, nonspecific T wave inversions in inferior, lateral leads and baseline artifacts. During the stress, there were no new EKG changes suggestive of ischemia. IMPRESSION: EKG portion of the Lexiscan stress test is negative for inducible ischemia. Patient did have baseline EKG changes and EKG artifacts making this a poor quality study. Clinically correlate with the results of the nuclear portion of the Lexiscan stress test which will be reported separately. The EKGs were also reviewed by the attending physician. See addendum to this note by the attending physician for additional comments. Digitally Signed by PRIMO FIGUEREDO MD on 11/13/2022 01:17 PM [facility] Evaluation + Plan note Note Date & Type Note Facility Evaluation + Plan note No data available for this section [facility] Hospital Discharge instructions Note Date & Type Note Facility Hospital Discharge instructions No data available for this section [facility] Summary Purpose Family History No Family History Records Found Advance Directives No Advanced Directives Records FoundNo Advanced Directives Records Found Additional Source Comments Patient Care team informatio n (unrecognized section and content) Care Team Personnel Name: JESUS MANUEL DEL REAL DO Member Role: Primary Care Physician Address: Address: [address] [id number] [place] [address]- Care Team Related Persons Name: JAMI GAMBOA Name: JAMI GAMBOA Address: Home [id number] [place] [id number] Name: CHINO HE (unrecognized sect ion and content) No Status Records FoundNo Status Records Found INFORMATION SOURCE (unrecogn ized section and content) DATE CREATED AUTHOR 01/12/[address] [facility] DATE CREATED AUTHOR AUTHOR'S ORGANIZ ATION 06/17/2024 [facility] FOR RECORDS PERTAINING TO PATIENTS WHO ARE OR HAVE BEEN ENROLLED IN A CHEMICAL DEPENDENCY/SUBSTANCEABUSE PROGRAM, SOME INFORMATION MAY BE OMITTED. This clinical summary was aggregated from multiple sources. Caution should be exercised in using it in the provision of clinical care. This summary normalizes information from multiple sources, and as a consequence, information in this document may materially change the coding, format and clinical context of patient data. In addition, data may be omitted in some cases. CLINICAL DECISIONS SHOULD BE BASED ON THE PRIMARY CLINICAL RECORDS. [facility] [employer] [facility]. provides no warranty or guarantee of the accuracy or completeness of information in this document.
== END | disposition home or self-care (01) ==
LOC: LAB 13:22
PROVIDERS: PCP Nurse Practitioner Family; Referring Provider Internal Medicine Endocrinology, Diabetes & Metabolism; Visit Provider Internal Medicine Endocrinology, Diabetes & Metabolism
DX: E11.65 Type 2 diabetes mellitus with hyperglycemia (principal)
CPT/HCPCS: 36415; 80053; 83036

== ENCOUNTER → 2025-01-04 | Outpatient (CLI) | payer SELFPAY ==
[2025-01-04 10:28] LABS: Creatinine, Urine (random) 127.00 mg/dL (39.00-259.00); Microalbumin,Random Urine 18.2 mg/L (<20 mg/L)
[2025-01-04 12:03] LABS: AST(SGOT) 24 U/L (<=37); Alanine Aminotransfer ALT/SGPT 21 U/L (<=46); Albumin, Serum 4.4 g/dL (3.4-4.8); Alkaline Phosphatase 74 U/L (40-129); Anion Gap 11 (5-15); BUN 17 mg/dL (4-19); BUN/Creat Ratio 18.2 RATIO (10-20); Calcium,Total 9.5 mg/dL (7.6-11.0); Carbon Dioxide 24.6 mmol/L (21.0-32.0); Chloride 103 mmol/L (98-108); Cholesterol 130 mg/dL (<=200); Globulin 3.0 g/dL (2.2-4.2); Glucose 103 mg/dL (70-99); Low Density Lipoprotein Calc. 51 mg/dL; Potassium 4.7 mmol/L (3.3-5.1); Triglycerides 169 mg/dL; Very Low Density Lipoprotein 34 mg/dL (5-40); Vitamin D,25 Hydroxy 47.9 ng/mL (30-100); cholesterol:hdl ratio screen 2.54
== END | disposition home or self-care (01) ==
PROVIDERS: PCP Nurse Practitioner Family; Referring Provider Physician Assistant Medical; Visit Provider Physician Assistant Medical
DX: E11.65 Type 2 diabetes mellitus with hyperglycemia (principal); E78.5 Hyperlipidemia, unspecified; E04.9 Nontoxic goiter, unspecified; E55.9 Vitamin D deficiency, unspecified
CPT/HCPCS: 36415; 80053; 80061; 82043; 82306; 82570; 83036; 84443